=== PATIENT | female | born 1970 ===

== ENCOUNTER 2017-05-06 14:17 | Emergency (ER) | payer BC ==
[2017-05-06 14:43] VITALS: BP 148/79; PULSE 90; RESP 16; TEMP 98.2; O2SAT 98
[2017-05-06] MEDS ORDERED: Absorbable Gelatin Sponge Size 12-7 TP STA (14:52)
--- NOTE | 2017-05-06 14:52 | ED PDOC ---
Upper Extremity Pain/Injury Time Seen by Provider: 05/06/17 14:44 Chief Complaint (Nursing): Finger,Hand,&Wrist Chief Complaint (Provider): Finger,Hand,&Wrist History Per: Patient History/Exam Limitations: no limitations Onset/Duration Of Symptoms: Mins (prior to arrival) Current Symptoms Are (Timing): Still Present Additional Complaint(s): 46 y/o right handed female presents to the ED for evaluation of avulsion to right index finger when metal door closed on finger around 2pm today. Patient notes using over the counter anticoagulant. Denies crush injury or any further medical complaints. Tetanus UTD. Past Medical History Reviewed: Historical Data, Nursing Documentation, Vital Signs Vital Signs: Last Vital Signs Temp 98.2 F 05/06/17 14:40 Pulse 90 05/06/17 14:40 Resp 16 05/06/17 14:40 BP 148/79 05/06/17 14:40 Pulse Ox 98 05/06/17 14:40 - Surgical History Surgical History: Appendectomy - Family History Family History: States: No Known Family Hx - Immunization History Hx Tetanus Toxoid Vaccination: No (not sure) - Home Medications Home Medications: Ambulatory Orders Medication Instructions Recorded Cephalexin [Keflex] 500 mg PO QID #20 cap 05/06/17 Cephalexin [cephalexin] 500 mg PO QID #20 cap 05/06/17 - Allergies Allergies/Adverse Reactions: Allergies Allergy/AdvReac Type Severity Reaction Status Date / Time No Known Allergies Allergy Verified 04/22/16 15:49 Review of Systems ROS Statement: Except As Marked, All Systems Reviewed And Found Negative (As per HPI, otherwise negative) Skin: Positive for: Other (Avulsion of the right index finger) Physical Exam - Reviewed Nursing Documentation Reviewed: Yes Vital Signs Reviewed: Yes - Physical Exam Appears: Positive for: Well, Non-toxic, No Acute Distress Head Exam: Positive for: ATRAUMATIC, NORMAL INSPECTION, NORMOCEPHALIC Skin: Positive for: Normal Color, Warm, Dry, Rash (1cm region of avulsion on right index finger with minimal involvement of nail) Eye Exam: Positive for: Normal appearance ENT: Positive for: Normal ENT Inspection Neck: Positive for: Normal, Supple Cardiovascular/Chest: Positive for: Regular Rate, Rhythm. Negative for: Murmur Respiratory: Positive for: Normal Breath Sounds. Negative for: Respiratory Distress Back: Positive for: Normal Inspection Extremity: Positive for: Normal ROM. Negative for: Deformity Neurologic/Psych: Positive for: Alert, Oriented (x3) - ECG O2 Sat by Pulse Oximetry: 98 (RA) Pulse Ox Interpretation: Normal Medical Decision Making Medical Decision Making: Time: 14:44 Plan: --Gelatin Sponge 12-7 1spg TP --Ibuprofen 600mg PO --Tetanus 0.5ml IM Time: 15:10 Upon provider reevaluation patient is feeling better, is medically stable, and requires no further treatment in the ED at this time. Patient will be discharged home with Rx for Cephalexin 500 mg PO. Counseling was provided and all questions were answered regarding diagnosis. There is agreement to discharge plan. Return if symptoms persist or worsen. Clinical Impression: skin avulsion Scribe Attestation: Documented by Sunil Aranda acting as a scribe for JULEE Med[place]. Scribe Attestation: All medical record entries made by the Scribe were at my direction and personally dictated by me. I have reviewed the chart and agree that the record accurately reflects my personal performance of the history, physical exam, medical decision making, and the department course for this patient. I have also personally directed, reviewed, and agree with the discharge instructions and disposition. Disposition - Clinical Impression Clinical Impression: Skin avulsion - Patient ED Disposition Is Patient to be Admitted: No - Disposition Disposition: Routine/Home Disposition Time: 15:10 Condition: FAIR Additional Instructions: F/U IN 24-48 HOURS FOR WOUND CHECK Prescriptions: Cephalexin [cephalexin] 500 mg PO QID #20 cap Cephalexin [Keflex] 500 mg PO QID #20 cap Instructions: Nail Avulsion (ED) Forms: [employer] (Korean)
[2017-05-06] MEDS ORDERED: Absorbable Gelatin Sponge Size 12-7 ONE (14:57)
== END 2017-05-06 15:16 | disposition home or self-care (01) ==
LOC: H.ER 14:17
DX: S61.302A Unspecified open wound of right middle finger with damage to nail, initial encounter (principal); W22.8XXA Striking against or struck by other objects, initial encounter; Y92.89 Other specified places as the place of occurrence of the external cause